=== PATIENT | female | born 1960 | race Caucasian/White ===

== ENCOUNTER 2021-01-13 10:35 | Inpatient (IN) | payer OTHER ==
[~2021-01-13] VITALS: Ht 154.9 cm; Wt 72.6 kg
[2021-01-13] MEDS ORDERED: ALBU90OI INH (11:41)
[2021-01-13] MEDS ORDERED: AMLO10 PO (11:42)
[2021-01-13] MEDS ORDERED: PAXIL40 MG PO (11:42)
[2021-01-13 12:44] LABS: SARS-Cov-2 (COVID-19) PCR, MMC POSITIVE (NEGATIVE)
[2021-01-13 14:21] LABS: Alanine Aminotransfer (ALT/SGP 37 U/L (12-78); Albumin/Globulin Ratio 0.6 (0.8-1.8); Alk Phos 82 U/L (50-136); Anion Gap 9 mmol/L (6-16); Aspartate Aminotrans (AST/SGOT 28 U/L (12-37); Bilirubin, Total 1.2 mg/dL (0.1-1.0); Blood Urea Nitrogen 10 mg/dL (8-24); Bun/Creatinine Ratio 17.6 (12.0-20.0); CO2, Blood 21 mmol/L (21-32); Calcium, Blood 8.1 mg/dL (8.5-10.1); Chloride, Blood 105 mmol/L (98-108); Creatinine, Blood 0.57 mg/dL (0.40-1.00); Globulin, Blood 4.9 g/dL (2.2-4.0); Glomerular Filtration Rate >60 (60-); Glucose, Blood 148 mg/dL (70-99); Magnesium, Blood 2.6 mg/dL (1.6-2.4); Potassium, Blood 2.7 mmol/L (3.5-5.5); Sodium, Blood 135 mmol/L (136-145); Total Protein, Blood 7.9 g/dL (6.4-8.2); Troponin I <0.015 ng/mL (0.000-0.040)
[2021-01-13 14:25] LABS: BASOPHILS ABSOLUTE AUTO 0.03 K/mm3 (0.00-0.23); BASOPHILS PERCENT AUTO 0 % (0-2); EOSINOPHILS ABSOLUTE AUTO 0.06 K/mm3 (0.00-0.68); EOSINOPHILS PERCENT AUTO 1 % (0-6); Hematocrit 39.5 % (33.0-51.0); Hemoglobin 14.3 g/dL (11.5-16.0); IMMATURE GRAN ABSOLUTE AUTO 0.06 K/mm3 (0.00-0.10); IMMATURE GRAN PERCENT AUTO 1 % (0-1); LYMPHOCYTES ABSOLUTE AUTO 0.85 K/mm3 (0.84-5.20); LYMPHOCYTES PERCENT AUTO 9 % (21-46); MONOCYTES ABSOLUTE AUTO 0.45 K/mm3 (0.16-1.47); MONOCYTES PERCENT AUTO 5 % (4-13); Mean Corpuscular HGB 31.8 pg (26.0-34.0); Mean Corpuscular HGB Conc 36.2 g/dL (31.5-36.5); Mean Corpuscular Volume 88 fL (80-100); Mean Platelet Volume 10.5 fL (9.1-12.4); NEUTROPHILS ABSOLUTE AUTO 8.27 K/mm3 (1.96-9.15); NEUTROPHILS PERCENT AUTO 85 % (41-73); Platelet Count 253 K/mm3 (150-400); RDW Coefficient Variation 12.5 % (11.7-14.2); RDW Standard Deviation 39.9 fL (35.1-46.3); White Blood Cell Count 9.72 K/mm3 (4.00-11.30)
[2021-01-13 19:23] LABS: Alanine Aminotransfer (ALT/SGP 37 U/L (12-78); Albumin, Blood 2.6 g/dL (3.4-5.0); Albumin/Globulin Ratio 0.6 (0.8-1.8); Alk Phos 75 U/L (50-136); Anion Gap 7 mmol/L (6-16); Aspartate Aminotrans (AST/SGOT 29 U/L (12-37); Bilirubin, Total 0.7 mg/dL (0.1-1.0); Blood Urea Nitrogen 12 mg/dL (8-24); Bun/Creatinine Ratio 20.3 (12.0-20.0); CO2, Blood 22 mmol/L (21-32); Chloride, Blood 109 mmol/L (98-108); Creatinine, Blood 0.59 mg/dL (0.40-1.00); Globulin, Blood 4.6 g/dL (2.2-4.0); Glomerular Filtration Rate >60 (60-); Glucose, Blood 208 mg/dL (70-99); Phosphorus, Blood 3.2 mg/dL (2.5-4.9); Potassium, Blood 3.5 mmol/L (3.5-5.5); Sodium, Blood 138 mmol/L (136-145); Total Protein, Blood 7.2 g/dL (6.4-8.2)
[2021-01-13 19:24] LABS: CHOL/HDL RATIO 5.3; Cholesterol 128 mg/dL (50-200); HDL Cholesterol 24 mg/dL (>39); LDL/HDL RATIO 3.5; Low Density Lipoprotein Chol 84 mg/dL (0-110); Triglycerides 100 mg/dL (30-160); Very Low Density Lipoprot Chol 20 mg/dL (6-32)
[2021-01-13] MEDS ORDERED: ATOR10 PO (20:42)
--- NOTE | 2021-01-14 06:31 | NUR ---
Pt admitted yesterday evening for COVID, pt AAOx3, denies pain, is on 5L NC. VSS
--- NOTE | 2021-01-14 18:06 | NUR ---
SHIFT SUMMARY PT ALERT AND ORIENTED ABLE TO MAKE NEEDS KNOWN. CURRENTLY REQUIRING 5L O2 NC. PT DID COMPLAIN OF A HEADACHE 1800. TYLENOL GIVEN. PT EXPERIENCING DRY COUGH. FATIGUE.
--- NOTE | 2021-01-15 06:01 | NUR ---
SHIFT SUMMARY: AOX3, INDEPENDENT IN THE ROOM TO THE BATHROOM. ON 6 LITERS NC. LUNG SOUNDS DIMINISHED WITH SOME CRACKLES. SATS MAINTAINING JUST ABOVE 90%. VERY DRY HACKY COUGH ESPECIALLY WHEN SHE GETS UP AND MOVES. ABLE TO DRINK PLENTY OF FLUIDS. ANXIETY, ATIVAN ORDERED. SLEPT ONLY FOR A FEW HOURS DUE TO COUGH, DISPITE COUGH MEDICATION. VS WNL. IVF INFUSING WITH NO PROBLEMS. ENCOURAGED PRONE OR LAYING ON SIDE. WILL CONTINUE TO MONITOR TILL DAY SHIFT ARRIVES.
[2021-01-15 06:03] LABS: Alanine Aminotransfer (ALT/SGP 32 U/L (12-78); Albumin, Blood 2.5 g/dL (3.4-5.0); Albumin/Globulin Ratio 0.6 (0.8-1.8); Alk Phos 73 U/L (50-136); Anion Gap 7 mmol/L (6-16); Aspartate Aminotrans (AST/SGOT 22 U/L (12-37); Bilirubin, Total 0.4 mg/dL (0.1-1.0); Blood Urea Nitrogen 13 mg/dL (8-24); Bun/Creatinine Ratio 22.5 (12.0-20.0); CO2, Blood 21 mmol/L (21-32); Calcium, Blood 8.3 mg/dL (8.5-10.1); Chloride, Blood 113 mmol/L (98-108); Creatinine, Blood 0.58 mg/dL (0.40-1.00); Globulin, Blood 4.2 g/dL (2.2-4.0); Glomerular Filtration Rate >60 (60-); Glucose, Blood 89 mg/dL (70-99); Sodium, Blood 141 mmol/L (136-145); Total Protein, Blood 6.7 g/dL (6.4-8.2)
[2021-01-15 06:13] LABS: BASOPHILS ABSOLUTE AUTO 0.03 K/mm3 (0.00-0.23); BASOPHILS PERCENT AUTO 0 % (0-2); EOSINOPHILS ABSOLUTE AUTO 0.04 K/mm3 (0.00-0.68); EOSINOPHILS PERCENT AUTO 0 % (0-6); Hematocrit 36.3 % (33.0-51.0); Hemoglobin 12.9 g/dL (11.5-16.0); IMMATURE GRAN ABSOLUTE AUTO 0.11 K/mm3 (0.00-0.10); IMMATURE GRAN PERCENT AUTO 1 % (0-1); LYMPHOCYTES ABSOLUTE AUTO 1.35 K/mm3 (0.84-5.20); LYMPHOCYTES PERCENT AUTO 11 % (21-46); MONOCYTES ABSOLUTE AUTO 0.45 K/mm3 (0.16-1.47); MONOCYTES PERCENT AUTO 4 % (4-13); Mean Corpuscular HGB 31.7 pg (26.0-34.0); Mean Corpuscular HGB Conc 35.5 g/dL (31.5-36.5); Mean Corpuscular Volume 89 fL (80-100); Mean Platelet Volume 10.5 fL (9.1-12.4); NEUTROPHILS ABSOLUTE AUTO 10.93 K/mm3 (1.96-9.15); NEUTROPHILS PERCENT AUTO 85 % (41-73); Platelet Count 321 K/mm3 (150-400); RDW Coefficient Variation 12.6 % (11.7-14.2); RDW Standard Deviation 41.2 fL (35.1-46.3); Red Blood Cell Count 4.07 M/mm3 (3.80-5.20); White Blood Cell Count 12.91 K/mm3 (4.00-11.30)
--- NOTE | 2021-01-15 18:33 | NUR ---
SHIFT SUMMARY PATIENT MEDICATED X1 FOR PAIN AND X1 FOR COUGH. UP SBA TO BR. MAINTAINING OXYGEN SATURATION ABOVE 90% AT 7L/NC. DECLINED TO PRONE BUT TOLERATES LAYING ON SIDE WELL. NAPPING MOST OF SHIFT. PLEASANT AND COOPERATIVE WITH CARE.
--- NOTE | 2021-01-16 05:32 | NUR ---
SHIFT SUMMARY: INCREASE ON OXYGEN DEMAND TO 10 LITERS ON OXIMIZER. SATS AVERAGE 89-90%. LS ARE CLEAR WITH DIMINISHED IN THE BASES, VERY DRY HACKING COUGH CAUSES HER SATS TO DROP TO LOW 70'S. HAS TO LAY ON SIDE TO GET GOOD PERFUSION. LITTLE ACTIVITY AT THIS TIME DUE TO INCREASE IN DEMAND. BEDREST TO BSC. PLEURIC PAIN DUE TO COUGH. COUGH MEDS GIVEN BUT STILL LITTLE SLEEP NOTED. IVF STOPPED. IF IN HAND DC'D DUE TO NON-PATENCY. WILL CONTINUE TO MONITOR. CALL LIGHT IN REACH.
[2021-01-16 09:41] LABS: BASOPHILS ABSOLUTE AUTO 0.04 K/mm3 (0.00-0.23); BASOPHILS PERCENT AUTO 0 % (0-2); EOSINOPHILS ABSOLUTE AUTO 0.14 K/mm3 (0.00-0.68); EOSINOPHILS PERCENT AUTO 1 % (0-6); Hematocrit 37.1 % (33.0-51.0); Hemoglobin 13.8 g/dL (11.5-16.0); IMMATURE GRAN ABSOLUTE AUTO 0.13 K/mm3 (0.00-0.10); IMMATURE GRAN PERCENT AUTO 1 % (0-1); LYMPHOCYTES ABSOLUTE AUTO 1.56 K/mm3 (0.84-5.20); LYMPHOCYTES PERCENT AUTO 14 % (21-46); MONOCYTES PERCENT AUTO 4 % (4-13); Mean Corpuscular HGB 34.2 pg (26.0-34.0); Mean Corpuscular HGB Conc 37.2 g/dL (31.5-36.5); Mean Corpuscular Volume 92 fL (80-100); Mean Platelet Volume 9.5 fL (9.1-12.4); NEUTROPHILS ABSOLUTE AUTO 8.65 K/mm3 (1.96-9.15); NEUTROPHILS PERCENT AUTO 79 % (41-73); Platelet Count 401 K/mm3 (150-400); RDW Coefficient Variation 12.5 % (11.7-14.2); RDW Standard Deviation 41.1 fL (35.1-46.3); Red Blood Cell Count 4.03 M/mm3 (3.80-5.20); White Blood Cell Count 10.92 K/mm3 (4.00-11.30)
[2021-01-16 10:03] LABS: Alanine Aminotransfer (ALT/SGP 26 U/L (12-78); Albumin, Blood 2.6 g/dL (3.4-5.0); Albumin/Globulin Ratio 0.6 (0.8-1.8); Alk Phos 77 U/L (50-136); Anion Gap 5 mmol/L (6-16); Aspartate Aminotrans (AST/SGOT 16 U/L (12-37); Bilirubin, Total 0.4 mg/dL (0.1-1.0); Blood Urea Nitrogen 13 mg/dL (8-24); Bun/Creatinine Ratio 22.5 (12.0-20.0); CO2, Blood 25 mmol/L (21-32); Calcium, Blood 8.4 mg/dL (8.5-10.1); Chloride, Blood 110 mmol/L (98-108); Creatinine, Blood 0.58 mg/dL (0.40-1.00); Globulin, Blood 4.5 g/dL (2.2-4.0); Glomerular Filtration Rate >60 (60-); Glucose, Blood 104 mg/dL (70-99); Potassium, Blood 3.5 mmol/L (3.5-5.5); Sodium, Blood 140 mmol/L (136-145); Total Protein, Blood 7.1 g/dL (6.4-8.2)
--- NOTE | 2021-01-16 16:24 | NUR ---
SHIFT SUMMARY PATIENT DENIES PAIN, NAUSEA, AND SHRTNESS OF BREATH AT REST. COUGH MUCH IMPROVED FROM YESTERDAY. PATIENT MAINTAINING OXYGEN SATURATION ABOVE 90% ON 10L/OXYMIZER. PATIENT UP SBA TO BSC. PATIENT HAD PE STUDY TODAY, RESULTS NEGATIVE. EATING AND DRINKING WELL.
--- NOTE | 2021-01-17 04:15 | NUR ---
SHIFT SUMMARY; LUNG SOUNDS ARE STILL TIGHT BUT DOES HAVE SIGNS OF MUCUS BREAKING UP. SHE IS ABLE TO COUGH A LITTLE SECREATIONS OUT NOW. HER COUGH IS LESS OFTEN BUT WHEN SHE DOES HAVE THEM IT IS A COUGHING SPELL. PAIN STILL IN SIDES FROM COUGH. FATQIUED, POOR APPETITE. ON 10LITERS OXIMIZER AND HOLDING AT 90-92%. POOR ENERGY CONSERVATION. ENCOURAGED LOT OF WATER AND REST. VS WITH SOME TACHYCARDIA, NO FEVERS. MEDICATED FOR PAIN X1. CALL LIGHT IS IN REACH.
--- NOTE | 2021-01-17 16:19 | NUR ---
SHIFT SUMMARY PATIENT MEDICATED X1 FOR PAIN. PATIENT DENIES NAUSEA AND SHORTNESS OF BREATH. PATIENT MEDICATED X1 FOR COUGH. PATIENT HAS HAD A DECREASE IN HER COUGH THIS SHIFT. PATIENT IS ON 10L OXIMIZER AND MAINTAINING SATS IN THE MID 90S. PATIENT IS A SBA TO THE BS. PATIENT DESATS WITH ACTIVITY, BUT RECOVERS WELL. PATIENT EATING AND DRINKING WELL. PATIENT PLEASANT AND COOPERATIVE WITH CARE.
--- NOTE | 2021-01-18 04:19 | NUR ---
NO ACUTE CHANGES OR SIGNIFICANT EVENTS NOTED OVERNIGHT. STILL ON ON 10LITERS VIA OXYMIZER. OXYGEN IS IN 90S EXCEPT WHEN UP TO THE BATHROOM, THEN SHE DESATS TO LOW 80S. NORCO AND ROBUTSSIN GIVEN SIMULTANEOUSLY TO HELP WITH PLEURITIC CHEST PAIN AND COUGHING SPELLS.
--- NOTE | 2021-01-18 17:30 | NUR ---
SHIFT SUMMARY PT WITH COUGH THAT IS HELPED WITH ROBITUSSIN. GIVEN INSTRUCTION ON HOW TO USE INCENTIVE SPIROMETER AND FREQUENCY. APPEARED TO USE APPROPRIATELY AFTER INSTRUCTION. CONTINUOUS PULSE OXIMETRY WITH BLUE TOOTH ON AND SATS HAVE BEEN IN THE MID TO HIGH 90'S THROUGH THE DAY. DROPPED O2 TO 8L/M AND AFTER A COUPLE HOURS DROPPED IT AGAIN TO 6L/M BY OXIMIZER WITH PULSE OX 94%. HAS BEEN AT REST SINCE DECREASE IN O2 SO WILL MONITER FOR TOLERATION WITH ACTIVITY. GAVE HERSELF A SPONGE BATH AND TOLERATED WITH THE 10L/M EARLIER IN THE DAY.
--- NOTE | 2021-01-19 04:52 | NUR ---
ALERT AND ORIENTED X3. OXYGEN HAS BEEN GREATER THAN 95% ON 6 LITERS VIA OXYMIZER. WEANED TO 5LITERS AT 0245 AND PATIENT IS TOLERARTING WELL. CURRENTLY STILL GREATER THAN 95% ON 5 LITERS. GAVE NORCO FOR PLEURTIC PAIN FROM COUGHING AND ROBUTUSSIN AND BEDTIME. NO OTHER ACUTE CHANGES IN CONDITION PRESENT OVERNIGHT.
[2021-01-19 05:42] LABS: BASOPHILS ABSOLUTE AUTO 0.04 K/mm3 (0.00-0.23); BASOPHILS PERCENT AUTO 0 % (0-2); EOSINOPHILS ABSOLUTE AUTO 0.05 K/mm3 (0.00-0.68); EOSINOPHILS PERCENT AUTO 0 % (0-6); Hemoglobin 13.7 g/dL (11.5-16.0); IMMATURE GRAN ABSOLUTE AUTO 0.23 K/mm3 (0.00-0.10); IMMATURE GRAN PERCENT AUTO 2 % (0-1); LYMPHOCYTES ABSOLUTE AUTO 1.64 K/mm3 (0.84-5.20); LYMPHOCYTES PERCENT AUTO 13 % (21-46); MONOCYTES ABSOLUTE AUTO 0.68 K/mm3 (0.16-1.47); MONOCYTES PERCENT AUTO 5 % (4-13); Mean Corpuscular HGB 33.1 pg (26.0-34.0); Mean Corpuscular HGB Conc 36.1 g/dL (31.5-36.5); Mean Corpuscular Volume 92 fL (80-100); Mean Platelet Volume 9.7 fL (9.1-12.4); NEUTROPHILS ABSOLUTE AUTO 10.03 K/mm3 (1.96-9.15); NEUTROPHILS PERCENT AUTO 79 % (41-73); Platelet Count 407 K/mm3 (150-400); RDW Coefficient Variation 12.3 % (11.7-14.2); RDW Standard Deviation 40.4 fL (35.1-46.3); Red Blood Cell Count 4.14 M/mm3 (3.80-5.20); White Blood Cell Count 12.67 K/mm3 (4.00-11.30)
[2021-01-19 06:07] LABS: Alanine Aminotransfer (ALT/SGP 19 U/L (12-78); Albumin, Blood 2.6 g/dL (3.4-5.0); Albumin/Globulin Ratio 0.6 (0.8-1.8); Alk Phos 66 U/L (50-136); Anion Gap 5 mmol/L (6-16); Aspartate Aminotrans (AST/SGOT 9 U/L (12-37); Bilirubin, Total 0.3 mg/dL (0.1-1.0); Blood Urea Nitrogen 15 mg/dL (8-24); Bun/Creatinine Ratio 23.7 (12.0-20.0); CO2, Blood 27 mmol/L (21-32); Calcium, Blood 8.5 mg/dL (8.5-10.1); Chloride, Blood 108 mmol/L (98-108); Creatinine, Blood 0.63 mg/dL (0.40-1.00); Globulin, Blood 4.3 g/dL (2.2-4.0); Glomerular Filtration Rate >60 (60-); Glucose, Blood 119 mg/dL (70-99); Potassium, Blood 4.2 mmol/L (3.5-5.5); Sodium, Blood 140 mmol/L (136-145); Total Protein, Blood 6.9 g/dL (6.4-8.2)
--- NOTE | 2021-01-19 17:44 | NUR ---
pt quite pleasant today. did request ativan this aft. felt anx. done. states doing well at this time. pt/ot worked with her today. no new concerns noted today. bed in low position, call lite in reach, calls approp.
--- NOTE | 2021-01-20 05:25 | NUR ---
PATIENT SUMMARY PATIENT IS ALERT AND ORIENTED X4. VS STABLE FOR PATIENT ON 5L OXIMIZER. PATIENT COUGHS AFTER AMBULATING TO THE RESTROOM BUT VS STABLIZE WITHIN 3 MINUTES AFTE RECERTION. NO COMPLAINTS OF CHEST PAIN. ENCOURAGED PATIENT TO INCREASE ACTIVITY TOLERATED. ALL CARES COMPLETED AND MEDICATIONS GIVEN ORDERED ACCORDING TO NURSING JUDGEMENT. ALL UNFINISHED CARES ENDORSED TO ONCOMING SHIFT.
[2021-01-20 05:51] LABS: BASOPHILS ABSOLUTE AUTO 0.04 K/mm3 (0.00-0.23); BASOPHILS PERCENT AUTO 0 % (0-2); EOSINOPHILS ABSOLUTE AUTO 0.03 K/mm3 (0.00-0.68); EOSINOPHILS PERCENT AUTO 0 % (0-6); Hematocrit 38.2 % (33.0-51.0); Hemoglobin 13.5 g/dL (11.5-16.0); IMMATURE GRAN ABSOLUTE AUTO 0.31 K/mm3 (0.00-0.10); IMMATURE GRAN PERCENT AUTO 3 % (0-1); LYMPHOCYTES ABSOLUTE AUTO 1.64 K/mm3 (0.84-5.20); LYMPHOCYTES PERCENT AUTO 13 % (21-46); MONOCYTES ABSOLUTE AUTO 0.86 K/mm3 (0.16-1.47); MONOCYTES PERCENT AUTO 7 % (4-13); Mean Corpuscular HGB 32.4 pg (26.0-34.0); Mean Corpuscular HGB Conc 35.3 g/dL (31.5-36.5); Mean Corpuscular Volume 92 fL (80-100); Mean Platelet Volume 10.2 fL (9.1-12.4); NEUTROPHILS ABSOLUTE AUTO 9.48 K/mm3 (1.96-9.15); NEUTROPHILS PERCENT AUTO 77 % (41-73); Platelet Count 363 K/mm3 (150-400); RDW Coefficient Variation 12.3 % (11.7-14.2); RDW Standard Deviation 40.7 fL (35.1-46.3); Red Blood Cell Count 4.17 M/mm3 (3.80-5.20); White Blood Cell Count 12.36 K/mm3 (4.00-11.30)
[2021-01-20 06:10] LABS: Alanine Aminotransfer (ALT/SGP 20 U/L (12-78); Albumin, Blood 2.5 g/dL (3.4-5.0); Albumin/Globulin Ratio 0.6 (0.8-1.8); Alk Phos 69 U/L (50-136); Anion Gap 6 mmol/L (6-16); Aspartate Aminotrans (AST/SGOT 9 U/L (12-37); Bilirubin, Total 0.2 mg/dL (0.1-1.0); Blood Urea Nitrogen 18 mg/dL (8-24); Bun/Creatinine Ratio 32.3 (12.0-20.0); CO2, Blood 25 mmol/L (21-32); Calcium, Blood 8.3 mg/dL (8.5-10.1); Chloride, Blood 103 mmol/L (98-108); Creatinine, Blood 0.56 mg/dL (0.40-1.00); Globulin, Blood 4.2 g/dL (2.2-4.0); Glomerular Filtration Rate >60 (60-); Glucose, Blood 323 mg/dL (70-99); Potassium, Blood 4.2 mmol/L (3.5-5.5); Sodium, Blood 134 mmol/L (136-145); Total Protein, Blood 6.7 g/dL (6.4-8.2)
[2021-01-20] MEDS ORDERED: ACET325 PO (12:07)
[2021-01-20] MEDS ORDERED: GUAI600T33 PO (12:08)
[2021-01-20] MEDS ORDERED: BENZ100A PO (12:08)
[2021-01-20] MEDS ORDERED: MELATONIN5 M1 PO (12:09)
[2021-01-20] MEDS ORDERED: LISI5 PO (12:09)
[2021-01-20] MEDS ORDERED: LORCET 5-325 M1 EACH PO (12:09)
[2021-01-20] MEDS ORDERED: PANT40 PO (12:10)
[2021-01-20] MEDS ORDERED: DECADRON6 M1 PO (12:10)
--- NOTE | 2021-01-20 13:07 | NUR ---
Discharge Summary A/Ox4, discharging to home. Reviewed d/c papers with patient, no questions at this time. Emily (Pharmacist) reviewed meds with patient. Meds faxed to [facility] per patient's request. BEV packet given to patient to establish care here if she decides to stay in [place] (patient was visiting son and she is from [place]). Instructed to follow up via telemedicine with PCP in [facility] and to wear O2 per Home O2 Eval; patient verbalized understanding. [facility] delivered portable tank, will return belongings upon d/c. Patient to have family transport home. Will be escorted by staff upon d/c.
== END 2021-01-20 14:15 | disposition home or self-care (01) | DRG 177 ==
LOC: ER 10:35 → MEDS 17:13 → ERHOLD 17:13 → MEDS 20:30
PROVIDERS: Emergency Medicine Emergency Medical Services; Family Medicine; Internal Medicine; ADMIT Hospitalist
PROC: 8E0ZXY6 Isolation (ICD-10-PCS; principal; 2021-01-13)
PROC: XW033E5 Introduction of Remdesivir Anti-infective into Peripheral Vein, Percutaneous Approach, New Technology Group 5 (ICD-10-PCS; 2021-01-13)
PROC: 3E0333Z Introduction of Anti-inflammatory into Peripheral Vein, Percutaneous Approach (ICD-10-PCS; 2021-01-14)
DX: U07.1 COVID-19 (principal); J96.01 Acute respiratory failure with hypoxia; J12.82 Pneumonia due to coronavirus disease 2019; J44.0 Chronic obstructive pulmonary disease with (acute) lower respiratory infection; J44.1 Chronic obstructive pulmonary disease with (acute) exacerbation; R73.9 Hyperglycemia, unspecified; T38.0X5A Adverse effect of glucocorticoids and synthetic analogues, initial encounter; I10 Essential (primary) hypertension; E78.5 Hyperlipidemia, unspecified; E87.6 Hypokalemia; F32.9 Major depressive disorder, single episode, unspecified; F41.9 Anxiety disorder, unspecified; Z87.891 Personal history of nicotine dependence; Z79.899 Other long term (current) drug therapy
CPT/HCPCS: 36415; 71045; 71260; 80053; 80061; 82728; 83036; 83605; 83690; 83735; 83880; 84100; 84145; 84484; 85025; 85379; 86141; 87040; 93005; 93010; 94640; 94644; 94660; 94760; 94761; 94762; 96365; 96366; 96367; 96368; 96375; 97165; 97530; 99285-25; A9270; C9113; J1100; J1650; J2060; J2930; J3475; J3480; J7030; Q9967; U0004

== ENCOUNTER → 2021-11-26 | Outpatient (CLI) | payer OTHER ==
[~2021-11-26] MED LIST: ACET325 PO; ALBU90OI INH; AMLO10 PO; ATOR10 PO; BENZ100A PO; DECADRON6 M1 PO; GUAI600T33 PO; LISI5 PO; LORCET 5-325 M1 EACH PO; MELATONIN5 M1 PO; PANT40 PO; PAXIL40 MG PO
== END | disposition home or self-care (01) ==
LOC: LAB SHORT 12:05 → LAB 12:05
DX: I10 Essential (primary) hypertension (principal)
CPT/HCPCS: 82043

== ENCOUNTER → 2021-12-22 | Outpatient (CLI) | payer OTHER ==
[2021-12-23 13:02] LABS: Adenovirus F 40/41 Not Detected (NOT DETECT); Astrovirus Not Detected (NOT DETECT); Campylobacter Sp Not Detected (NOT DETECT); Cryptosporidium Not Detected (NOT DETECT); Cyclospora Cayetanensis Not Detected (NOT DETECT); E. Coli O157 Not Detected (NOT DETECT); Entamoeba Histolytica Not Detected (NOT DETECT); Enteroaggregative E. coli-EAEC Not Detected (NOT DETECT); Enteropathogenic E. coli-EPEC Not Detected (NOT DETECT); Enterotoxigenic E. coli-ETEC Not Detected (NOT DETECT); Giardia Lamblia Not Detected (NOT DETECT); Norovirus GI/GII Not Detected (NOT DETECT); Plesiomonas Shigelloides Not Detected (NOT DETECT); Rotavirus A Not Detected (NOT DETECT); Salmonella Sp Not Detected (NOT DETECT); Sapovirus Not Detected (NOT DETECT); Shiga Toxin-prod E. coli-STEC Not Detected (NOT DETECT); Shigella/Enteroin E. coli-EIEC Not Detected (NOT DETECT); Vibrio Cholerae Not Detected (NOT DETECT); Vibrio Sp Not Detected (NOT DETECT); Yersinia Enterocolitica Not Detected (NOT DETECT)
== END | disposition home or self-care (01) ==
LOC: LAB SHORT 11:00 → LAB 11:00
PROVIDERS: Family Medicine
DX: R19.7 Diarrhea, unspecified (principal)
CPT/HCPCS: 87338; 87507

== ENCOUNTER 2022-05-19 16:24 | Observation (INO) | payer OTHER ==
[~2022-05-19] VITALS: Ht 157.5 cm; Wt 67.1 kg
[2022-05-19 17:07] LABS: BASOPHILS ABSOLUTE AUTO 0.06 K/mm3 (0.00-0.23); BASOPHILS PERCENT AUTO 1 % (0-2); EOSINOPHILS PERCENT AUTO 1 % (0-6); Hematocrit 41.9 % (33.0-51.0); Hemoglobin 14.9 g/dL (11.5-16.0); IMMATURE GRAN ABSOLUTE AUTO 0.03 K/mm3 (0.00-0.10); IMMATURE GRAN PERCENT AUTO 0 % (0-1); LYMPHOCYTES ABSOLUTE AUTO 2.22 K/mm3 (0.84-5.20); LYMPHOCYTES PERCENT AUTO 25 % (21-46); MONOCYTES ABSOLUTE AUTO 0.62 K/mm3 (0.16-1.47); MONOCYTES PERCENT AUTO 7 % (4-13); Mean Corpuscular HGB 32.8 pg (26.0-34.0); Mean Corpuscular HGB Conc 35.6 g/dL (31.5-36.5); Mean Corpuscular Volume 92 fL (80-100); Mean Platelet Volume 9.3 fL (9.1-12.4); NEUTROPHILS PERCENT AUTO 66 % (41-73); Platelet Count 279 K/mm3 (150-400); RDW Coefficient Variation 13.6 % (11.7-14.2); RDW Standard Deviation 46.6 fL (35.1-46.3); Red Blood Cell Count 4.54 M/mm3 (3.80-5.20); White Blood Cell Count 9.03 K/mm3 (4.00-11.30)
[2022-05-19 17:27] LABS: Albumin, Blood 4.4 g/dL (3.4-5.0); Albumin/Globulin Ratio 1.3 (0.8-1.8); Bilirubin, Total 0.4 mg/dL (0.1-1.0); Bun/Creatinine Ratio 16.6 (12.0-20.0); Calcium, Blood 9.3 mg/dL (8.5-10.1); Creatinine, Blood 0.6 mg/dL (0.40-1.00); Globulin, Blood 3.4 g/dL (2.2-4.0); Potassium, Blood 4.3 mmol/L (3.5-5.5); Total Protein, Blood 7.8 g/dL (6.4-8.2)
[2022-05-19] MEDS ORDERED: OMEP20ER PO (21:26)
[2022-05-19] MEDS ORDERED: COMBIVENT RESPIM4 G1 INH (21:26)
[2022-05-19] MEDS ORDERED: ASPI81CH PO (21:27)
[2022-05-19] MEDS ORDERED: METO25ER PO (21:27)
[2022-05-19] MEDS ORDERED: NITR.4SL SL (21:28)
--- NOTE | 2022-05-20 04:16 | NUR ---
SHIFT SUMMARY NO ACUTE CHANGES POST ADMISSION. PT AXO. IN SR. VSS. DENES CP/PRESSURE. ON RA. ADMISSION PACKET COMPLETE. FLUIDS INFUSING PER EMAR. PT C/O OF NOT BEING ABLETO SLEEP IN HOPSITALS. PRN ADMINISTERED, PT HAS BEEN RESTING COMFORTABLY PER HER REPORT SINCE ADMINISTRATION. BED ALARM ON DUE TO PT RECEIING MARITZAIEN FOR THE FIRST TIME, NO INCIDENT AT THIS TIME. OTHERWISE, CALL LIGHT CLIPPED TO PATIENTS BLANKET. BED IN LOW POSITION.
[2022-05-20 04:31] LABS: CHOL/HDL RATIO 2.9; Cholesterol 177 mg/dL (50-200); HDL Cholesterol 62 mg/dL (>39); LDL/HDL RATIO 1.3; Low Density Lipoprotein Chol 82 mg/dL (0-110); Triglycerides 167 mg/dL (30-160); Very Low Density Lipoprot Chol 33 mg/dL (6-32)
--- NOTE | 2022-05-20 18:41 | NUR ---
ASSUMED CARE OF PT AT 0700 THIS AM. NO ACUTE EVENTS FOR MOST OF THE SHIFT, PT RESTED QUIETLY IN BED, NPO, AWAITING CONTAINER COORDINATOR PROCEDURE. PT TO CONTAINER COORDINATOR AT 1550, RETURNED TO ROOM AT 1800 WITH BEDSIDE REPORT FROM CONTAINER COORDINATOR RNs. STENT TO RCA, TR BAND TO R WRIST, NO BLEEDING OR HEMATOMA NOTED, PT DENIES N/T TO HAND/FINGERS, CAP REFILL LESS THAN 3 SEC. POST OP VITALS IN PROGRESS. PT DENIES CHEST PAIN OR PRESSURE AT THIS TIME, REMAINS IN SR. SEE DOCUMENTED VS AND ASSESSMENT. PT VERBALIZES UNDERSTANDING OF R WRIST RESTRICTIONS. PT ABLE TO USE CALL LIGHT FOR NEEDS, CALL LIGHT IN REACH, WILL CONTINUE TO MONITOR AND GIVE REPORT TO NOC SHIFT RN.
[2022-05-21 06:12] LABS: Bun/Creatinine Ratio 17.3 (12.0-20.0); Creatinine, Blood 0.58 mg/dL (0.40-1.00); Potassium, Blood 3.5 mmol/L (3.5-5.5)
--- NOTE | 2022-05-21 06:24 | NUR ---
SHIFT SUMMARY PT ORIENTED X4, ANXIOUS. STARTED DEFLATING TR BAND @2105. REMOVED 2ML Q15 MIN. SOME DRAINAGE NOTED AFTER 6 ML REMOVED. REINFLATED WITH 4ML. WAITING ONE HOUR AND STILL NOTING SOME DRAINAGE. NO HEMATOMA. SPOKE WITH DR. RICH ON UNIT ABOUT HYPERTENSION WITH SBP IN 150S-160S. NO ORDERS AT THIS TIME. ABLE TO TAKE 4ML OFF AND CONTINUED TO OOZE. CALLED ON-CALL RESIDENT FOR SBP IN 170S. PER DR. VARGAS, GIVE X1 DOSE OF IV HYDRALIZINE. PT ALSO INCREASINGLY ANXIOUS AND COMPLAINING OF SHORTNESS OF BREATH. SATS WNL ON RA AND BREATHING UNLABORED. PT STATES FEELS LIKE A "PANIC ATTACK I'VE HAD BEFORE". NOTIFIED PROVIDER AND ANTIANXIETY MEDICATION RECEIVED. SEE EMAR FOR DETAILS AFTER BP WNL, DECISION TO MANUALLY APPLY PRESSURE TO ACHIEVE HEMOSTATIS AND GET BETTER VISUALIZATION. PRESSURE MANUALLY HELD BY THIS RN FOR 15 MINUTES WITH HEMOSTASIS ACHIEVED. DRESSING WITH SOME SS DRAINAGE BUT NO HEMATOMA OR OOZING. WILL PASS ON TO DAY RN
[2022-05-21] MEDS ORDERED: CLOP75 PO (13:11)
--- NOTE | 2022-05-21 13:54 | NUR ---
ASSUMED CARE OF PT AT 0700 THIS AM. PT REPORTS EPISODES OF SOB/ANXIETY OVERNIGHT AND THIS AM. NO CHANGES TO EKG OR VS NOTED. DISCUSSED WITH DR RICH DURING ROUNDING, BRILINTA CHANGED TO PLAVIX BY DR RICH. IV REMOVED, SITE WNL, NO REDNESS OR SWELLING NOTED AT SITE. REIVEWED ALL DISCHARGE INSTRUCTION WITH PT, INCLUDING MEDICATION LIST, NEW PRESCRIPTIONS, FOLLOW UP APPOINTMENTS AND RADIAL SITE CARE. PT VERBALIZES UNDERSTANDING AND STATES SHE HAS NO QUESTIONS OR CONCERNS AT THIS TIME. ALL BELONGINGS SENT HOME WITH PT. NO FUTHER DISCHARGE NEEDS IDENTIFIED. PT ABLE TO AMBULATE INDEPENDENTLY OUT OF ROOM. PT STATES SHE WILL CALL A CAB FOR A RIDE HOME.
== END 2022-05-21 13:45 | disposition home or self-care (01) ==
LOC: ER 16:24 → PCU 16:25
PROVIDERS: Physician Assistant; ADMIT Internal Medicine Cardiovascular Disease
DX: I25.110 Atherosclerotic heart disease of native coronary artery with unstable angina pectoris (principal); R07.89 Other chest pain; I10 Essential (primary) hypertension; E78.5 Hyperlipidemia, unspecified; F17.200 Nicotine dependence, unspecified, uncomplicated; J44.9 Chronic obstructive pulmonary disease, unspecified
CPT/HCPCS: 36415; 71045; 76937; 80048; 80053; 80061; 82550; 83880; 84484; 85025; 85347; 93005; 93010; 93458; 93571; 94760; 96374; 99152; 99153; A9270; C1725; C1769; C1874; C1887; C1894; C9600; G0378; J0153; J0360; J1644; J2250; J3010; J7030; J7050; Q9967

== ENCOUNTER 2022-06-27 12:56 | Emergency (ER) | payer OTHER ==
[~2022-06-27] VITALS: Ht 157.5 cm; Wt 63.5 kg
[~2022-06-27 12:56] MED LIST changes: +ASPI81CH PO; +CLOP75 PO; +COMBIVENT RESPIM4 G1 INH; +METO25ER PO; +NITR.4SL SL; +OMEP20ER PO
[2022-06-27 14:12] LABS: BASOPHILS ABSOLUTE AUTO 0.05 K/mm3 (0.00-0.23); BASOPHILS PERCENT AUTO 1 % (0-2); EOSINOPHILS ABSOLUTE AUTO 0.12 K/mm3 (0.00-0.68); EOSINOPHILS PERCENT AUTO 2 % (0-6); Hematocrit 42.2 % (33.0-51.0); Hemoglobin 14.7 g/dL (11.5-16.0); IMMATURE GRAN ABSOLUTE AUTO 0.03 K/mm3 (0.00-0.10); IMMATURE GRAN PERCENT AUTO 0 % (0-1); LYMPHOCYTES ABSOLUTE AUTO 1.76 K/mm3 (0.84-5.20); LYMPHOCYTES PERCENT AUTO 22 % (21-46); MONOCYTES ABSOLUTE AUTO 0.56 K/mm3 (0.16-1.47); MONOCYTES PERCENT AUTO 7 % (4-13); Mean Corpuscular HGB 32.7 pg (26.0-34.0); Mean Corpuscular HGB Conc 34.8 g/dL (31.5-36.5); Mean Corpuscular Volume 94 fL (80-100); Mean Platelet Volume 9.1 fL (9.1-12.4); NEUTROPHILS ABSOLUTE AUTO 5.63 K/mm3 (1.96-9.15); NEUTROPHILS PERCENT AUTO 69 % (41-73); Platelet Count 227 K/mm3 (150-400); RDW Coefficient Variation 13.8 % (11.7-14.2); RDW Standard Deviation 47.8 fL (35.1-46.3); Red Blood Cell Count 4.49 M/mm3 (3.80-5.20); White Blood Cell Count 8.15 K/mm3 (4.00-11.30)
[2022-06-27 14:29] LABS: Albumin/Globulin Ratio 1.1 (0.8-1.8); Bilirubin, Total 0.4 mg/dL (0.1-1.0); Bun/Creatinine Ratio 32.6 (12.0-20.0); Calcium, Blood 8.9 mg/dL (8.5-10.1); Creatinine, Blood 0.4 mg/dL (0.40-1.00); Globulin, Blood 3.7 g/dL (2.2-4.0); Potassium, Blood 4.1 mmol/L (3.5-5.5); Total Protein, Blood 7.7 g/dL (6.4-8.2)
== END 2022-06-27 16:26 | disposition home or self-care (01) ==
LOC: ER 12:56
PROVIDERS: Physician Assistant
DX: M62.838 Other muscle spasm (principal); R53.1 Weakness; J44.9 Chronic obstructive pulmonary disease, unspecified; I10 Essential (primary) hypertension; F17.200 Nicotine dependence, unspecified, uncomplicated; Z79.899 Other long term (current) drug therapy; Z79.82 Long term (current) use of aspirin; Z88.8 Allergy status to other drugs, medicaments and biological substances
CPT/HCPCS: 36415; 80053; 83690; 85025